=== PATIENT | female | born 1960 | race Caucasian/White ===

== ENCOUNTER → 2019-04-01 15:49 | Outpatient (CLI) | payer OTHER, MEDICAID, SELFPAY ==
--- NOTE | 2019-04-01 15:52 | DI.RAD.S_ITS ---
PROCEDURE: XR KNEE LT 3V INDICATIONS: knee pain, likely arthritis TECHNIQUE: 3 views of the knee were acquired. COMPARISON: None. FINDINGS: Bones: No fractures or dislocations. There is a posterior lateral transverse screw through the proximal tibiofibular articulation. No significant joint space loss although there is mild articular surface undulation and moderate tricompartment marginal spur formation. No suspicious bony lesions. Soft tissues: Small joint effusion. No suspicious soft tissue calcifications. IMPRESSION: Tricompartment osteoarthritic changes and small reactive joint effusion. Prior surgical stabilization of the proximal tibiofibular articulation. Dictated by: Emmy Longo M.D. on 04/01/2019 at 17:40 Approved by: Emmy Longo M.D. on 04/01/2019 at 17:42
--- NOTE | 2019-04-01 15:52 | DI.RAD.S_ITS ---
PROCEDURE: XR KNEE LT 3V INDICATIONS: knee pain, likely arthritis TECHNIQUE: 3 views of the left knee were acquired. COMPARISON: None. FINDINGS: Bones: No fractures or dislocations. Mild lateral compartment joint space loss and small marginal spurring. Enthesopathic change at the origin of the medial collateral ligament. No suspicious bony lesions. Soft tissues: Small joint effusion. No suspicious soft tissue calcifications. IMPRESSION: Mild lateral compartment osteoarthritic changes. Evidence of remote prior MCL injury. Small joint effusion. Dictated by: Emmy Longo M.D. on 04/01/2019 at 19:15 Approved by: Emmy Longo M.D. on 04/01/2019 at 19:16
== END ==
PROVIDERS: Family Provider Family Medicine; PCP Family Medicine; Visit Provider Family Medicine
DX: M25.561 Pain in right knee (principal); M25.562 Pain in left knee; M25.462 Effusion, left knee; M25.461 Effusion, right knee
CPT/HCPCS: 73562

== ENCOUNTER 2019-09-26 07:15 | Day surgery (SDC) | payer OTHER, MEDICAID, SELFPAY ==
[2019-09-26] VITALS (7 sets, daily range): BP systolic 111–138; BP diastolic 56–78; PULSE 58–82; RESP 12–19; TEMP 36.1–36.6; O2SAT 94–97; BMI 29.1
[2019-09-26] MEDS: SODIUM CHLORIDE 0.9% 1,000 ML 200 ML IV (07:54)
--- NOTE | 2019-09-26 08:14 | PM.HP.1 ---
History of Present Illness History of Present Illness Date Patient Seen: 09/26/19 Time Patient Seen: 08:23 Chief complaint: [id number] Narrative: Patient presents for colorectal screening. They had a prior colonoscopy 5 years ago at an outside institution that was notable for adenomatous polyps. No personal or family history of colon cancer. On further history denies any recent gastrointestinal symptoms. No nausea, vomiting, abdominal pain, loss of appetite, unexplained weight loss, change in bowel habits, diarrhea, constipation, melena, hematochezia, or bright red blood per rectum. Patient History Medical History (Updated 09/26/19 @ 08:22 by Jerry Melara MD) Breast cancer (Chronic) Family & Social History Family History (Updated 07/07/17 @ 00:00 by Conversion Provider) Brother Age: 53 Stroke Grandmother Heart disease Mother Age: 78 Hypertension Stroke Sister Age: 57 Hypertension Sister Age: 56 Cancer Tobacco & Substance use: Smoking Status Never smoker Meds Home Medications and Allergies Home Medications Medication Instructions Recorded Confirmed Type acetaminophen [Tylenol Extra 1,000 mg PO Q6H PRN 09/26/19 09/26/19 History Strength] aspirin [Aspir-81] 81 mg PO DAILY 09/26/19 09/26/19 History multivitamin 1 tab PO DAILY 09/26/19 09/26/19 History valacyclovir 500 mg PO DAILY 09/26/19 09/26/19 History Allergies Allergy/AdvReac Type Severity Reaction Status Date / Time codeine [CODEINE] Allergy Intermediate nausea Verified 09/26/19 07:36 Review of Systems Review of Systems ROS Unobtainable: All systems reviewed & are unremarkable except as noted in HPI and below Exam Vital Signs (past 8 hours): - 09/26/19 07:48 Temperature 97.0 F L Pulse Rate 82 Respiratory Rate 12 Blood Pressure 131/72 Pulse Oximetry 96 Oxygen Delivery Method Room Air Narrative Exam Narrative: General-no acute distress, well nourished HEENT-moist mucous membranes, no scleral icterus Neck-supple, no lymphadenopathy Chest- non labored respirations, clear to auscultation bilaterally Cardiac-regular rate no peripheral edema Abdomen-soft, nontender, non distended Extremities-warm, well perfused Neurological-alert and oriented, no focal deficits Assessment & Plan Assessment and plan (1) Screening for colon cancer: Current visit: Yes Status: Acute Assessment & Plan narrative: The patient requires colorectal screening and colonoscopy is recommended. Technical details were discussed. Risks, benefits, alternatives explained. Risks including but not limited to myocardial infarction, aspiration, bleeding, pain, missed lesion, incomplete examination, need for further radiographic studies, colonic perforation, and need for major abdominal surgery were discussed. All questions were answered to their satisfaction, and they are in agreement with this plan.
[2019-09-26] MEDS: MIDAZOLAM 5 MG/5 ML VIAL IV (08:29)
[2019-09-26] MEDS: fentaNYL 250 MCG/5 ML INJ IV (08:38)
--- NOTE | 2019-09-26 08:51 | PM.OP.ENDO ---
Operative Date/Time/Diagnoses Date of procedure: 09/26/19 Time of procedure: 08:51 Pre-op diagnosis: Screening colonoscopy Post-op diagnosis: same Procedure & Clinicians Study performed: Colonoscopy Same procedure as scheduled: Yes Indications: A 58-year-old woman who 5 years ago had a colonoscopy that demonstrated several adenomatous polyps she presents for screening Surgeon: Jerry Melara Procedure Notes SCOAP/Timeout: Performed Procedure in detail: Patient placed in left lateral decubitus position. Time out was performed. Procedural sedation was administered with Versed and Fentanyl. A rectal exam demonstrated no external hemorrhoids no internal masses. Colonoscopy scope was placed into the rectum and advanced through the colon to the cecum. The ileocecal valve was identified. The scope was then slowly withdrawn examining colon thoroughly in all directions. The colonoscopy was notable for the following 1. Sigmoid diverticulosis 2. Moderate quality prep 3. Grade 1 internal hemorrhoids Scope withdrawal time: 7 Sedation minutes: 20 Findings: diverticulosis Specimen(s): none sent Complications: none Impression: Diverticulosis Post-procedure Recommendations: Colonscopy in 10 years Disposition: same day surgery
--- NOTE | 2019-09-26 09:24 | SUR.PHASEI ---
preparing to go to OP[facility], awake, talking, denies discomfort.
== END 2019-09-26 09:47 | disposition home or self-care (01) ==
PROVIDERS: Family Provider Family Medicine; PCP Family Medicine; Visit Provider Surgery
PROC: 0DJD8ZZ Inspection of Lower Intestinal Tract, Via Natural or Artificial Opening Endoscopic (ICD-10-PCS; CPT 45378; principal; 2019-09-26 08:30)
DX: Z12.11 Encounter for screening for malignant neoplasm of colon (principal); Z86.010 Personal history of colon polyps; K57.30 Diverticulosis of large intestine without perforation or abscess without bleeding; K64.0 First degree hemorrhoids
CPT/HCPCS: 45378; 99152; J2250; J3010

== ENCOUNTER → 2020-11-27 10:42 | Outpatient (CLI) | payer OTHER, SELFPAY ==
[2020-11-27 11:55] LABS: Alanine Aminotransferase 20 IU/L (<35); Albumin 4.1 g/dL (3.5-5.0); Albumin Globulin Ratio 1.4 (1.0-2.8); Alkaline Phosphatase 62 U/L (38-126); Aspartate Aminotransferase 28 IU/L (14-36); BUN Creatinine Ratio 30.2 (6-22); Bilirubin Total 0.3 mg/dL (0.2-1.3); Blood Urea Nitrogen 19 mg/dL (7-17); Calcium 8.9 mg/dL (8.4-10.2); Carbon Dioxide 30 mmol/L (22-32); Chloride 104 mmol/L (98-107); Cholesterol 198 mg/dL (140-199); Estimated Glomerular Filt Rate > 60.0 mL/min (>60); Glucose 119 mg/dL (80-110); HDL Cholesterol 88 mg/dL (40-60); HEMOLYSIS < 15 (0-50); LDL Cholesterol Calculated 92 mg/dL (<100); Potassium 3.7 mmol/L (3.4-5.1); Sodium 136 mmol/L (137-145); Total Protein 7.1 g/dL (6.3-8.2); Triglycerides 88 mg/dL (35-150)
[2020-11-27 15:11] LABS: Creatinine Urine Random 84.6 mg/dL
[2020-11-27 15:16] LABS: Microalbumin Urine Random 2.2 mg/dL (0-1.6)
== END ==
PROVIDERS: Family Provider Family Medicine; PCP Family Medicine; Referring Provider Family Medicine; Visit Provider Family Medicine
DX: R03.0 Elevated blood-pressure reading, without diagnosis of hypertension (principal)
CPT/HCPCS: 36415; 80053; 80061; 82043; 82570

== ENCOUNTER → 2020-12-11 13:53 | Outpatient (CLI) | payer OTHER, SELFPAY ==
[2020-12-11 15:19] LABS: Hemoglobin A1C% w Est Avg Glu 5.5 % (4.0-6.0)
== END ==
PROVIDERS: Family Provider Family Medicine; PCP Family Medicine; Referring Provider Family Medicine; Visit Provider Family Medicine
DX: R73.09 Other abnormal glucose (principal)
CPT/HCPCS: 36415; 83036

== ENCOUNTER 2021-04-23 09:44 | Day surgery (SDC) | payer OTHER, SELFPAY ==
[2021-04-23 10:32] VITALS: BP 151/79; PULSE 74; RESP 16; TEMP 36.6; O2SAT 97; BMI 31.3
[2021-04-23] MEDS: PROPARACAINE 0.5% OPHTH SOL 2 DROPS EYE-OP (10:36)
[2021-04-23] MEDS: CATARACT EYE COMPOUND (10 DROPS/SYRINGE) 3 DROPS EYE-OP (10:37)
--- NOTE | 2021-04-23 11:04 | PM.PREOP ---
Pre-operative Note Interval Note History & Physical reviewed/Exam performed by Physician: Yes Changes to H&P: No
--- NOTE | 2021-04-23 11:04 | PM.OP.1 ---
Operative Date/Time/Diagnoses Pre-op diagnosis: Nuclear cataract right eye Procedure & Clinicians Procedure: Cataract Surgery Same procedure as scheduled: Yes Surgeon: Jurgen Shannon Anesthesia Type: MAC +/- and Sedation Operative Notes Procedure in detail: Patient brought to the operating suite. Tetracaine drops placed in the right eye. Patient was prepped and draped in sterile manner. Wire lid speculum was placed in the eye. Betadine drops were placed on the eye. This was irrigated. Lidocaine jelly was placed on the eye. A paracentesis port was created with a side-port blade. 0.1 mL 1% preservative free lidocaine was injected into the anterior chamber. The anterior chamber was deepened with viscoelastic. 2.6 mm keratome was used to create a temporal clear corneal incision. Cystotome and Utrata forceps were used to create continuous tear capsulorrhexis. Balanced salt solution was used to hydro dissect the nucleus. The phacoemulsification handpiece was inserted and the nucleus was removed using the stop and chop technique. The irrigation aspiration handpiece was inserted and the remaining cortex was removed. Anterior chamber was deepened with viscoelastic. An Sharma ZXR00 intraocular lens with a power of 19.0 was injected into the capsular bag. Irrigation aspiration handpiece was inserted and the remaining viscoelastic was removed. Incision was hydrated with balanced salt solution and found to be leak free with pressure with Weck-Lili sponges. 0.1 mL Vigamox injected anterior chamber. 0.3 mL Kenalog 10 mg was injected subconjunctivally. Lid speculum was removed. The patient left the operating room in excellent condition. Complications: none Post-operative Condition: stable Disposition: same day surgery
[2021-04-23] MEDS: MOXIFLOXACIN INJ 4 MG/0.8 ML VIAL 0.5 MG EYE-OP (11:43)
[2021-04-23] MEDS: PHENYLEPHRINE/LIDOCAINE VIAL (OR) 0.2 ML EYE-OP (11:43)
[2021-04-23] MEDS: TETRACAINE 0.5% OPHTH DROPS 4 ML 2 DROPS EYE-OP (11:44)
[2021-04-23] MEDS: LIDOCAINE 2% (GLYDO) 6 ML GEL TOP (11:44)
[2021-04-23] MEDS: TRIAMCINOLONE 50 MG/5 ML VIAL INJ (11:44)
[2021-04-23] MEDS: CHONDROIDTIN/SOD HYALURONATE 1.05 ML SYRINGE INTRAOCULA (11:44)
[2021-04-23] MEDS: BALANCED SALT IRRIG SOLN NO.2 500 ML, EPINEPHrine 1 MG IRR (11:44)
[2021-04-23 12:04] VITALS: BP 145/86; PULSE 64; RESP 16; TEMP 36.2; O2SAT 98
== END 2021-04-23 12:04 | disposition home or self-care (01) ==
PROVIDERS: Family Provider Family Medicine; PCP Family Medicine; Referring Provider Ophthalmology; Visit Provider Ophthalmology
PROC: (CPT 66984; principal; 2021-04-23 11:15)
DX: H25.11 Age-related nuclear cataract, right eye (principal); I10 Essential (primary) hypertension; E78.5 Hyperlipidemia, unspecified
CPT/HCPCS: 66984; J0171; J2250; J3301; V2788

== ENCOUNTER → 2021-04-24 12:03 | Outpatient (CLI) | payer OTHER, SELFPAY ==
[2021-04-24 13:31] LABS: Uric Acid 4.6 mg/dL (2.5-6.2)
== END ==
PROVIDERS: Family Provider Family Medicine; PCP Family Medicine; Referring Provider Family Medicine; Visit Provider Family Medicine
DX: M10.9 Gout, unspecified (principal); M25.579 Pain in unspecified ankle and joints of unspecified foot
CPT/HCPCS: 36415; 84550

== ENCOUNTER 2021-05-07 11:53 | Day surgery (SDC) | payer OTHER, SELFPAY ==
[2021-05-07 12:16] VITALS: BP 124/72; PULSE 51; RESP 16; TEMP 37.1; O2SAT 92; BMI 28.6
[2021-05-07] MEDS: PROPARACAINE 0.5% OPHTH SOL 2 DROPS EYE-OP (12:24)
[2021-05-07] MEDS: CATARACT EYE COMPOUND (10 DROPS/SYRINGE) 3 DROPS EYE-OP ×3 (12:26→12:37)
--- NOTE | 2021-05-07 12:51 | PM.PREOP ---
Pre-operative Note Interval Note History & Physical reviewed/Exam performed by Physician: Yes Changes to H&P: No
--- NOTE | 2021-05-07 12:52 | PM.OP.1 ---
Operative Date/Time/Diagnoses Pre-op diagnosis: Nuclear Cataract Left eye Post-op diagnosis: same Procedure & Clinicians Same procedure as scheduled: Yes Surgeon: Jurgen Shannon Anesthesia Type: MAC +/- and Sedation Operative Notes Procedure in detail: Patient brought to the operating suite. Tetracaine drops placed in the left eye. Patient was prepped and draped in sterile manner. Wire lid speculum was placed in the eye. Betadine drops were placed on the eye. This was irrigated. Lidocaine jelly was placed on the eye. A paracentesis port was created with a side-port blade. 0.1 mL 1% preservative free lidocaine was injected into the anterior chamber. The anterior chamber was deepened with viscoelastic. 2.6 mm keratome was used to create a temporal clear corneal incision. Cystotome and Utrata forceps were used to create continuous tear capsulorrhexis. Balanced salt solution was used to hydro dissect the nucleus. The phacoemulsification handpiece was inserted and the nucleus was removed using the stop and chop technique. The irrigation aspiration handpiece was inserted and the remaining cortex was removed. Anterior chamber was deepened with viscoelastic. An Sharma ZXR00 intraocular lens with a power of 19.5 was injected into the capsular bag. Irrigation aspiration handpiece was inserted and the remaining viscoelastic was removed. Incision was hydrated with balanced salt solution and found to be leak free with pressure with Weck-Lili sponges. 0.1 mL Vigamox injected anterior chamber. 0.3 mL Kenalog 10 mg was injected subconjunctivally. Lid speculum was removed. The patient left the operating room in excellent condition. Complications: none Post-operative Condition: stable Disposition: same day surgery
[2021-05-07] MEDS: PHENYLEPHRINE/LIDOCAINE VIAL (OR) 0.2 ML EYE-OP (13:01)
[2021-05-07] MEDS: CHONDROIDTIN/SOD HYALURONATE 1.05 ML SYRINGE INTRAOCULA (13:02)
[2021-05-07] MEDS: TRIAMCINOLONE 50 MG/5 ML VIAL INJ (13:02)
[2021-05-07] MEDS: TETRACAINE 0.5% OPHTH DROPS 4 ML 2 DROPS EYE-OP (13:02)
[2021-05-07] MEDS: LIDOCAINE 2% (GLYDO) 6 ML GEL TOP (13:02)
[2021-05-07] MEDS: MOXIFLOXACIN INJ 4 MG/0.8 ML VIAL 0.5 MG EYE-OP (13:02)
[2021-05-07] MEDS: BALANCED SALT IRRIG SOLN NO.2 500 ML, EPINEPHrine 1 MG IRR (13:03)
[2021-05-07 13:24] VITALS: BP 139/74; PULSE 56; RESP 18; TEMP 36.3; O2SAT 97
== END 2021-05-07 14:00 | disposition home or self-care (01) ==
PROVIDERS: Family Provider Family Medicine; PCP Family Medicine; Referring Provider Ophthalmology; Visit Provider Ophthalmology
PROC: (CPT 66984; principal; 2021-05-07 13:45)
DX: H25.12 Age-related nuclear cataract, left eye (principal); I10 Essential (primary) hypertension; E78.5 Hyperlipidemia, unspecified; C50.919 Malignant neoplasm of unspecified site of unspecified female breast
CPT/HCPCS: 66984; J0171; J2250; J3301; V2788